=== PATIENT | female | born 1990 | race Caucasian/White ===

== ENCOUNTER 2025-03-31 22:57 | Emergency (ER) | payer OTHER, SELFPAY ==
[2025-03-31 23:07] VITALS: BP 107/86; PULSE 163; RESP 24; TEMP 36; O2SAT 98
[2025-03-31 23:39] VITALS: BMI 29.2
--- NOTE | 2025-03-31 23:44 | EDS_ITS ---
HPI History of Present Illness Chief Complaint: Anxiety Narrative Narrative: Patient is a 34-year-old female with past medical history anxiety, depression who presented to the emergency department with concern for panic attack. Per the patient around 8:00 this evening she started feeling increased sense of anxiety and notes that she took Klonopin at home. According to the patient family members at bedside they note that she has had panic attacks in the past but has been able to get through them. They note that they tried to help her through this this evening and seem to get much worse therefore they brought her here to the emergency department. 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 Patient denies suicidal homicidal ideation [facility] Medical History Depression Anxiety Allergy/AdvReac Type Severity Reaction Status Date / Time No Known Allergies Allergy Verified 03/31/25 23:07 Social History Smoking Status: Current some day smoker tobacco type: e-cigarettes ROS ROS ED ROS Narrative Constitutional: Denies any fevers, chills, headaches Eyes: Denies double vision Cardiovascular: Denies chest pain Respiratory: Shortness of breath Abdomen: Denies abdominal pain : Denies urinary symptoms Neurological: Denies numbness, wheeze, tingling Musculoskeletal: Denies back pain Skin: Denies rashes or lesions EXAM Physical Exam Narrative Exam Narrative: General: Patient is tearful during exam Head: Atraumatic, normocephalic Eyes: PERRL bilaterally, EOMI blood, no conjunctival injection noted Neck: Soft, supple, trachea midline Cardiovascular: Patient tachycardic with a regular rhythm Respiratory: Clear to auscultation bilaterally Extremities: +5/5 strength noted in the bilateral lower extremities Neurological: Patient follow commands as she was at [facility] years 2024 Skin: Warm, dry, tact no rashes or lesions noted Const Vital Signs: 03/31/25 23:07 Temperature 96.8 F L Temperature Source Temporal Pulse Rate 163 H Respiratory Rate 24 H Blood Pressure 107/86 H Blood Pressure Mean 93 Pulse Ox 98 Oxygen Delivery Method Room Air MDM MDM MDM Narrative Medical decision making narrative: Patient is a 34-year-old female who presents to the emergency department with chief complaint of panic attack. On the differential diagnose includes abdominal to anxiety, depression, panic attack. Patient states that she does follow with a psychiatrist but does not participate in counseling. Patient was given 5 mg IM Versed. Patient will be medically cleared and then be evaluated by social work/crisis for further evaluation with likely outpatient resources. see overnight provider's addendum for ultimate disposition details. Discharge Plan Triage Chief Complaint: Anxiety ED Provider: Horace Head Dx/Rx/DC Orders Clinical Impression: Anxiety, Panic attack Primary Care Provider: Aurora Brewer Referrals: Aurora Brewer MD [Primary Care Provider] - Activity Restrictions/Additional Instructions: Follow-up with your doctors in outpatient setting. Return with worsening symptoms or concerns. Use resources provided to you. Print Language: Khmer
[2025-03-31] MEDS: Midazolam 5 MG/ML Syringe IM (23:56)
[2025-04-01 00:38] LABS: Hematocrit 38.9 % (37-47); Hemoglobin 13.4 g/dL (12.0-15.0); Immature Granulocytes Count 0.030 X10^3/uL (0.0-0.0); Mean Corp Hgb Conc 34.4 g/dL (32-36); Mean Corpuscular Volume 83.3 fL (81-99); Mean Platelet Vol. 8.5 fl (6.2-12.0); NRBC Flagged by Analyzer 0 % (0-5); Platelet Count 623 K/mm3 (150-450); RBC Distribution Width CV 12.6 % (11.6-14.6); RBC Distribution Width SD 38.1 fl (35.1-43.9); Red Blood Count 4.67 M/mm3 (4.2-5.4); White Blood Count 11.2 K/mm3 (4.4-11.0)
[2025-04-01 00:54] LABS: Internal QC Validated? YES +Cl - CLEAR BKGD; Pregnancy, Serum, hCG Quali. NEGATIVE Negative; Record Kit Lot#, Serum Preg. 0000962302
[2025-04-01 00:57] LABS: Alcohol, Blood (Medical)-Serum < 10.1 mg/dL (<=10.0)
[2025-04-01 01:04] LABS: Free T3 3.3 pg/mL (2.18-3.98)
[2025-04-01 01:08] LABS: Anion Gap 18 (5-15); BUN 8 mg/dL (4-19); BUN/Creat Ratio 7.1 RATIO (10-20); Calcium,Total 10.2 mg/dL (7.6-11.0); Carbon Dioxide 19.9 mmol/L (21.0-32.0); Chloride 99 mmol/L (98-108); Estimated Creatinine Clearance 60.14 ml/min (50-250); Glucose 91 mg/dL (70-99); Potassium 3.8 mmol/L (3.3-5.1)
--- OUTSIDE RECORDS SUMMARY | 2025-04-01 01:09 | XMS RPT_ITS | CCD ---
Author Organization [facility] Care Team Providers Care Sightseeing Guide Name Role Phone Deborah Brown MD Primary Care Provider Deborah Brown MD Primary Care Provider Brandan CAN FILLING ROOM SWEEPER.DIGITAL LIBRARIAN, Clarissa Unavailable Masoud CAN FILLING ROOM SWEEPER.INSTRUCTOR TRAINER CANINE SERVICE, Viridiana Unavailable CLARISSA GIPSON Referring Unavailable DEBORAH BROWN Primary Care Unavailable DEBORAH BROWN Primary Care Unavailable ARISTEO BROWNA Primary Care Unavailable CLARISSA GIPSON Attending Unavailable DEBORAH BROWN Primary Care Unavailable Allergies Allergy Classification Reported Allergen(s) Allergy Type Date of Onset Reaction(s) Facility (7 sources) Cat; Translations: [CATS] Allergy to substance 8 Other: See Comments [facility] (7 sources) meloxicam; Translations: [MELOXICAM] Drug Allergy [address] [facility] Work Phone: (7 sources) metroNIDAZOLE; Translations: [METRONIDAZOLE HCL] Drug Allergy [address] [facility] (3 sources) seasonal [Other] Propensity to adverse reactions 4 Other: See Comments [facility] (1 source) OTHER; Translations: [OTHER] Propensity to adverse reactions (disorder) 4 [facility] [place] [facility] Medications Current Medications Medication Drug Class(es) Dates Sig (Normalized) Sig (Original) acetaminophen 325 mg / guaiFENesin 200 mg / phenylephrine hydrochloride 5 mg oral tablet (6 sources) alpha-1 Adrenergic Agonist Start: 02-23-2018 Phenylephrine-Angelito taminophen-GG (TYLENOL COLD HEAD CONGEST SEVR) 5-325-200 mg tab Indications: Viral URI Take 1 Dose by mouth as directed. 30 tablet 02/23/2018 Active Comment on above: Take 1 Dose by mouth as directed. [id number] 200 actuat albuterol 0.09 mg/actuat metered dose inhaler (6 sources) beta2-Adrenergic Agonist Start: 01-28-2019 take 2 puff(s) by inhalation every four hours as needed albuterol HFA (PROVENTIL HFA, VENTOLIN HFA) 90 mcg/actuation inhaler Indications: SOB (shortness of breath) , Wheezing Inhale 2 Puffs as instructed every 4 hours as needed. 1 Inhaler 2 01/28/2019 Active Comment on above: Inhale 2 Puffs as in structed every 4 hours as needed. 24 hr amphetamine aspartate 7.5 mg / amphetamine sulfate 7.5 mg / dextroamphetamine saccharate 7.5 mg / dextroamphetamine sulfate 7.5 mg extended release oral capsule (2 sources) Central Nervous System Stimulant Start: 07-03-2024 take 1 capsule by mouth once daily in the morning amphetamine-dextr oamphetamine XR (ADDERALL XR) 30 mg capsule Take 30 mg by mouth every morning. 07/03/2024 Active azelastine hydrochloride 0.137 mg/actuat metered dose nasal spray (6 sources) Histamine-1 Receptor Antagonist Start: 02-28-2018 take 2 spray(s) nasal route twice daily as needed azelastine (ASTELIN,ASTEPRO) 0.1% nasal spray Indications: Seasonal allergic rhinitis due to pollen , Allergic rhinitis due to dust mite , Allergic rhinitis due to cats Use 2 Sprays in each nostril twice daily as needed. 1 Bottle 11 02/28/2018 Active Comment on above: Use 2 Sprays in each nostril twice daily as needed. benztropine mesylate 1 mg oral tablet (2 sources) Anticholinergic, Antihistamine Start: 07-30-2024 benztropine (COGENTIN) 1 mg tablet Take 1 mg by mouth. 07/30/2024 Active brexpiprazole 2 mg oral tablet (2 sources) Atypical Antipsychotic Start: 07-29-2024 take 1 tablet by mouth once REXULTI 2 mg tablet Take 1 tablet by mouth every afternoon. 07/29/2024 Active calcipotriene 0.05 mg/ml topical solution (6 sources) Vitamin D Analog Start: 06-04-2019 Calcipotriene 0.005 % soln Apply daily for 2 weeks then apply on weekdays 1 Bottle 2 06/04/2019 Active Comment on above: Apply daily for 2 we eks then apply on week ciprofloxacin 3 mg/ml ophthalmic solution (1 source) Quinolone Antimicrobial Start: 01-22-2022 End: 01-29-2022 take 1-2 drop(s) into the eye(s) every two hours, then take 1-2 drop(s) into the eye(s) every four hours ciprofloxacin HCl (CILOXAN) 0.3 % ophthalmic solution Use 1-2 drops inside right lower eyelid(s) every 2 hours while awake for 2 days, then 1-2 drops every 4 hours for next 5 days. 2.5 mL 0 01/22/2022 01/29/2022 Active Comment on above: Use 1-2 drops inside right lower eyelid(s) every 2 hours while awake for 2 days, then 1-2 drops every 4 hours for next 5 days. clobetasol propionate 0.5 mg/ml medicated shampoo (6 sources) Corticosteroid Start: 02-15-2022 Clobetasol Propionate (CLOBEX) 0.05 % sham Indications: Other seborrheic dermatitis , Pruritus of scalp Lather up entire scalp surface that has been itching and scaling with a 15 minute soak-in as tolerated and then thoroughly rinse off completely, on alternate days (qoday) for a 2 to 4 week period (or less if alot better) and then can slowly taper as able to once per week or less often as able. 118 mL 02/15/2022 Active Start: 04-25-2019 Clobetasol Pro pionate (CLOBEX) 0.05 % sham Indications: Other seborrheic dermatitis , Pruritus of scalp Lather up entire scalp surface that has been itching and scaling with a 15 minute soak-in as tolerated and then thoroughly rinse off completely, on alternate days (qoday) for a 2 to 4 week period (or less if alot better) and then can slowly taper as able to once per week or less often as able. 1 Bottle 0 04/25/2019 Active Comment on above: Lather up entire sca lp surface that has been itching and scaling with a 15 minute soak-in as tolerated and then thoroughly rinse off completely, on alternate days (qoday) for a 2 to 4 week period (or less if alot better) and then can slowly taper as able to once per week or less often as able. Lather up entire sca lp surface that has been itching and scaling with a 15 minute soak-in as tolerated and then thoroughly rinse off completely, on alternate days (qoday) for a 2 to 4 week period (or less if alot better) and then can slowly taper as able to once per week or less often as able. clonazePAM 0.5 mg oral tablet (6 sources) Benzodiazepine Start: 017 clonazePAM (KLONOPIN) 0.5 mg tablet Indications: Anxiety , Psychophysiological insomnia Take 1 tablet by mouth at bedtime as needed. May take half to whole pill as needed for panic attacks 30 tablet 1 05/14/2017 Active Comment on above: Take 1 tablet by nina th at bedtime as needed. May take half to whole pill as needed for panic attacks dextroamphetamine/ amphetamine (ADDERALL ORAL) (6 sources) take 25 mg by mouth once daily dextroamphetamine/amphetam ine (ADDERALL ORAL) Take 25 mg by mouth once daily. Active take 25 mg by mouth once daily d extroamphetamine/amphetamine (ADDERALL ORAL) Take 25 mg by mouth once daily. 0 Active Comment on above: Take 25 mg by mouth once daily. doxycycline hyclate 100 mg oral tablet (1 source) Tetracycline-class Drug Start: 3 End: 3 take 1 tablet by mouth twice daily doxycycline (VIBRA-TABS) 100 mg tablet Take 1 tablet by mouth two times a day for 7 days. 14 tablet 0 06/10/2023 06/17/2023 Active Comment on above: Take 1 tablet by nina th two times a day for 7 days. DULoxetine 30 mg delayed release oral capsule (6 sources) Serotonin and Norepinephrine Reuptake Inhibitor Start: 4 DULoxetine (CYMBALTA) 30 mg capsule 09/30/2023 Active Start: 09-30-2023 DULoxetine (CY MBALTA) 60 mg capsule 09/30/2023 Active fluticasone propionate 0.05 mg/actuat metered dose nasal spray (6 sources) Corticosteroid Start: 02-28-2018 take 2 spray(s) nasal route once daily fluticasone (FLONASE) 50 mcg/actuation nasal spray Use 2 Sprays in each nostril once daily. 1 Bottle 11 02/28/2018 Active Comment on above: Use 2 Sprays in each nostril once daily. ketoconazole 20 mg/ml topical cream (6 sources) Azole Antifungal Start: 04-25-2019 ketoconazole (NIZORAL) 2 % cream Apply 1 application to affected area once daily. Use for 1 week after rash resolves 30 g 04/25/2019 Active Comment on above: Apply 1 application to affected area once daily. Use for 1 week after rash resolves ketotifen 0.25 mg/ml ophthalmic solution (6 sources) Histamine-1 Receptor Inhibitor Start: 02-28-2018 ketotifen fumarate (ZADITOR) 0.025 % (0.035 %) ophthalmic solution Indications: Seasonal allergic rhinitis due to pollen , Allergic [facility] Work Phone: 08-20-1991 measles, mumps and rubella virus vaccine [facility] CAN FILLING ROOM SWEEPER.[facility] Work Phone: [facility] Work Phone: 08-04-1991 tuberculin skin test ; purified protein derivative solution, intradermal Clarissa Gipson CAN FILLING ROOM SWEEPER.DIGITAL LIBRARIAN Work Phone: [facility] 06-26-1990 diphtheria, tetanus toxoids and acellular pertussis vaccine [facility] CAN FILLING ROOM SWEEPER.INSTRUCTOR TRAINER CANINE SERVICE Work Phone: [facility] Work Phone: 06-05-1990 diphtheria, tetanus toxoids and acellular pertussis vaccine [facility] CAN FILLING ROOM SWEEPER.INSTRUCTOR TRAINER CANINE SERVICE Work Phone: [facility] Work Phone: 06-05-1990 poliovirus vaccine, inactivated [facility] CAN FILLING ROOM SWEEPER.[facility] Work Phone: [facility] Work Phone: 03-20-1990 diphtheria, tetanus toxoids and acellular pertussis vaccine [facility] CAN FILLING ROOM SWEEPER.INSTRUCTOR TRAINER CANINE SERVICE Work Phone: [facility] Work Phone: 03-20-1990 poliovirus vaccine, inactivated [facility] [employer] CAN FILLING ROOM SWEEPER.[facility] Work Phone: [facility] Work Phone: Payers Date Payer Category Payer Unknown MMO MMO [employer] [id number] 2024-Present [phone] [address] [place] [address] Indemnity [id number] 2024 Unknown [id number] 2022 Medicaid [id number] 2021 Medicaid [employer] [id number] 2021-Present [phone] [address] [place] [address] Medicaid [id number] 2021 Medicaid [id number] Social History Date Type Detail Facility Start: 10-27-2016 End: 06-10-2023 Tobacco smoking status NHIS Ex-smoker [facility] End: 06-26-2016 History of tobacco use Current smoker [facility] End: 06-26-2016 History of tobacco use Cigarette Smoker [facility] Start: 10-27-2016 End: 06-10-2023 Tobacco use and exposure Smokeless tobacco non-user [facility] Start: 01-22-2022 End: 10-10-2023 Alcohol intake Current drinker of alcohol (finding) [facility] Start: 03-31-2011 History SDOH Alcohol Comment Occasionally [facility] Start: 05-03-[address] [facility] Start: 1990 Sex Assigned At Not on file C [facility] Start: 01-12-2022 End: 01-22-2022 Exposure to SARS-CoV-2 (event) Not sure [facility] Work Phone: Start: 06-10-2023 End: 09-01-2024 History of Social function [facility] Start: 06-10-2023 End: 09-01-[address] [facility] Adult Depression Screening Assessment [address] [facility] Start: 06-10-2023 Tobacco Comment mother smokes [facility] Has the Third Age, Feedback, oil, or water company threatened to shut off services in your home in past 12Mo No [facility] Are you now , , , , never or living with a partner? Never [facility] How often to you hav e a drink containing alcohol? Monthly or less [facility] How many standard drinks containing alcohol do you have on a typical day? [address] [facility] How often do you hav e 6 or more drinks on 1 occasion? Less than monthly [facility] How hard is it for y ou to pay for the very basics like food, housing, medical care, and heating Not very hard [facility] Do you feel stress - tense, restless, nervous, or anxious, or unable to sleep at night because your mind is troubled all the time - these days [OSQ] Only a little [facility] (I/We) worried rafa (my/our) food would run out before (I/we) got money to buy more. Never true [facility] Clinical Notes 01-22-2022 to 09-08-2024 Telephone Encounter - Clarissa Gipson APRN.DIGITAL LIBRARIAN - 09/08/2024 12:44 PM ESTTelephone Encounter - Clarissa Gipson APRN.DIGITAL LIBRARIAN - 09/08/2024 12:44 PM Clarissa Diamond APRN.DIGITAL LIBRARIAN - 09/02/2024 12:59 PM EST Note Date & Type Note Facility 09-08-2024 Telephone encounter Note Consistent with recent infection, otherwise within normal limits. Repeat at next lab draw. Latest Ref Rng 09/02/2024 WBC 3.70 - 11.00 k/uL 11.82 (H) RBC 3.90 - 5.20 m/uL 4.94 Hemoglobin 11.5 - 15.5 g/dL 14.9 Hematocrit 36.0 - 46.0 % 45.5 MCV 80.0 - 100.0 fL 92.1 MCH 26.0 - 34.0 pg 30.2 MCHC 30.5 - 36.0 g/dL 32.7 RDW-CV 11.5 - 15.0 % 13.2 Platelet Count 150 - 400 k/uL 662 (H) MPV 9.0 - 12.7 fL 8.7 (L) Neut% % 73.3 Abs Neut (ANC) 1.45 - 7.50 k/uL 8.67 (H) Lymph% % 17.8 Abs Lymph 1.00 - 4.00 k/uL 2.10 [place]% % 6.8 Abs [place] <0.87 k/uL 0.80 Eosin% % 1.0 Abs Eosin <0.46 k/uL 0.12 Baso% % 0.8 Abs Baso <0.11 k/uL 0.09 Immature Gran % % 0.3 IMMATURE GRANS (ABS) <0.10 k/uL 0.04 NRBC /100 WBC 0.0 Absolute nRBC <0.01 k/uL <0.01 DTYPE Auto Protein, Total 6.3 - 8.0 g/dL 7.8 Albumin 3.9 - 4.9 g/dL 4.5 Calcium 8.5 - 10.2 mg/dL 9.4 Bilirubin, Total 0.2 - 1.3 mg/dL 0.3 Alkaline Phosphatase 34 - 123 U/L 83 AST 13 - 35 U/L 22 ALT 7 - 38 U/L 14 Glucose 74 - 99 mg/dL 92 BUN 7 - 21 mg/dL 8 Creatinine 0.58 - 0.96 mg/dL 0.79 Sodium 136 - 144 mmol/L 137 Potassium 3.7 - 5.1 mmol/L 4.3 Chloride 98 - 107 mmol/L 99 CO2 22 - 30 mmol/L 23 Anion Gap 8 - 15 mmol/L 15 eGFR >=60 mL/min/1.73m 101 TSH 0.270 - 4.200 mIU/L 1.620 Lyme Abs, IgG/IgM Negative Negative Vitamin B12 232 - 1,245 pg/mL 981 Hep C Antibody IA Negative Negative Legend: (H) High (L) Low [facility] Work Phone: 09-08-2024 Miscellaneous Notes Consistent with recent infection, otherwise within normal limits. Repeat at next lab draw. Latest Ref Rng 09/02/2024 WBC 3.70 - 11.00 k/uL 11.82 (H) RBC 3.90 - 5.20 m/uL 4.94 Hemoglobin 11.5 - 15.5 g/dL 14.9 Hematocrit 36.0 - 46.0 % 45.5 MCV 80.0 - 100.0 fL 92.1 MCH 26.0 - 34.0 pg 30.2 MCHC 30.5 - 36.0 g/dL 32.7 RDW-CV 11.5 - 15.0 % 13.2 Platelet Count 150 - 400 k/uL 662 (H) MPV 9.0 - 12.7 fL 8.7 (L) Neut% % 73.3 Abs Neut (ANC) 1.45 - 7.50 k/uL 8.67 (H) Lymph% % 17.8 Abs Lymph 1.00 - 4.00 k/uL 2.10 [place]% % 6.8 Abs [place] <0.87 k/uL 0.80 Eosin% % 1.0 Abs Eosin <0.46 k/uL 0.12 Baso% % 0.8 Abs Baso <0.11 k/uL 0.09 Immature Gran % % 0.3 IMMATURE GRANS (ABS) <0.10 k/uL 0.04 NRBC /100 WBC 0.0 Absolute nRBC <0.01 k/uL <0.01 DTYPE Auto Protein, Total 6.3 - 8.0 g/dL 7.8 Albumin 3.9 - 4.9 g/dL 4.5 Calcium 8.5 - 10.2 mg/dL 9.4 Bilirubin, Total 0.2 - 1.3 mg/dL 0.3 Alkaline Phosphatase 34 - 123 U/L 83 AST 13 - 35 U/L 22 ALT 7 - 38 U/L 14 Glucose 74 - 99 mg/dL 92 BUN 7 - 21 mg/dL 8 Creatinine 0.58 - 0.96 mg/dL 0.79 Sodium 136 - 144 mmol/L 137 Potassium 3.7 - 5.1 mmol/L 4.3 Chloride 98 - 107 mmol/L 99 CO2 22 - 30 mmol/L 23 Anion Gap 8 - 15 mmol/L 15 eGFR >=60 mL/min/1.73m 101 TSH 0.270 - 4.200 mIU/L 1.620 Lyme Abs, IgG/IgM Negative Negative Vitamin B12 232 - 1,245 pg/mL 981 Hep C Antibody IA Negative Negative Legend: (H) High (L) Low documented in this encounter [facility] 09-02-2024 Note HNO ID: [id number] Author: CLARISSA GIPSON APRN.DIGITAL LIBRARIAN Service: ? Author Type: Nurse Specialist Type: Progress Notes Filed: 09/08/2024 12:44 Note Text: .AMBULATORY TELEPHONE VISIT Niecy Kyle has consented to this telephone encounter. Persons Present: patient Chief Complaint/Reason: fatigue HPI: Reports fstigue for two years, tired during the day. States she can sleep 12 hours during the day.Feels like progressively worse. States no prior testing. Thought it was depression, has tried depression medications and now with depression in better control but still feeling fatigued. Does not feel rested when she sleeps. Notes does have more fatigue at night. She reports her dog did have Lyme disease about a year ago, she has not had a tick bite, no EM or rash . STOP BANG Questionnaire 1. Snoring Do you snore loudly (louder than talking or loud enough to be heard through closed doors)? YES 2. Tired Do you often feel tired, fatigued, or sleepy during daytime? YES 3. Observed Has anyone observed you stop breathing during your sleep? NO 4. Blood Pressure Do you have or are you being treated for high blood pressure? NO 5. BMI BMI more than 35 kg/m2? YES 6. Age Age over 50 yr old? NO 7. Neck circumference Neck circumference greater than 40 cm? 8. Gender Gender male? NO * Neck circumference is measured by staff High risk of FLORENCIO: answering yes to three or more items Low risk of FLORENCIO: answering yes to less than three items Data Reviewed: chart Assessment: (R53.83) Other fatigue (primary encounter diagnosis) ASSESSMENT/PLAN: 1. Other fatigue - ICD9: 780.79, ICD10: R53.83 Will begin workup with basic labs. In office visit recommended, it has been greater than 1 year since last seen. Consider FLORENCIO if labs unrevealing for cause. - COMPLETE BLOOD COUNT AND DIFFERENTIAL - COMPREHENSIVE METABOLIC PANEL - THYROID STIMULATING HORMONE - LYME AB LATE >30 DAYS SYMPTOMS - VITAMIN B12 Total Time Spent: 15 minutes Clarissa Gipson APRN.CNS [facility] 09-02-2024 History of Presen t illness Narrative .AMBULATORY TELEPHONE VISIT Niecy Kyle has consented to this telephone encounter. Persons Present: patient Chief Complaint/Reason: fatigue HPI: Reports fstigue for two years, tired during the day. States she can sleep 12 hours during the day.Feels like progressively worse. States no prior testing. Thought it was depression, has tried depression medications and now with depression in better control but still feeling fatigued. Does not feel rested when she sleeps. Notes does have more fatigue at night. She reports her dog did have Lyme disease about a year ago, she has not had a tick bite, no EM /will begin workup with basic labs rashes reported. STOP BANG Questionnaire 1. Snoring Do you snore loudly (louder than talking or loud enough to be heard through closed doors)? YES 2. Tired Do you often feel tired, fatigued, or sleepy during daytime? YES 3. Observed Has anyone observed you stop breathing during your sleep? NO 4. Blood Pressure Do you have or are you being treated for high blood pressure? NO 5. BMI BMI more than 35 kg/m2? YES 6. Age Age over 50 yr old? NO 7. Neck circumference Neck circumference greater than 40 cm? 8. Gender Gender male? NO * Neck circumference is measured by staff High risk of FLORENCIO: answering yes to three or more items Low risk of FLORENCIO: answering yes to less than three items Data Reviewed: chart Assessment: (R53.83) Other fatigue (primary encounter diagnosis) ASSESSMENT/PLAN: 1. Other fatigue - ICD9: 780.79, ICD10: R53.83 Will begin workup with basic labs. In office visit recommended, it has been greater than 1 year since last seen. Consider FLORENCIO if labs unrevealing for cause. - COMPLETE BLOOD COUNT AND DIFFERENTIAL - COMPREHENSIVE METABOLIC PANEL - THYROID STIMULATING HORMONE - LYME AB LATE >30 DAYS SYMPTOMS - VITAMIN B12 Total Time Spent: 15 minutes Clarissa Gipson APRN.DIGITAL LIBRARIAN documented in this encounter [facility] 10-10-2023 Note HNO ID: [id number] Author: DARREL AGUILLON APRN.INSTRUCTOR TRAINER CANINE SERVICE Service: ? Author Type: Nurse Practitioner Type: Progress Notes Filed: 10/10/2023 13:13 Note Text: Subjective HPI HPI Niecy Kyle is a 32 year old female who presents today for CC of left eye redness, drainage. This started today. Has tried nothing for relief. Symptoms are worsened by nothing. Risk factors sick exposures at school/work. Wears contacts. .Patient presents with: Eye Problem: left eye redness and drainage x this am PAST MEDICAL HISTORY Diagnosis Date Anxiety Depression DIFF CONNECT TIS DIS NOS 07/28/2003 Dysplasia of cervix, low grade (LEATHA 1) 04/23/2012 Lupus (HCC) ?diagnosis (not certain met criteria) PMH - PAST MEDICAL HISTORY OF 05/04 menarche PMH - PAST MEDICAL HISTORY OF 12/16/96 color vision normal varicella varicella at age 1 years PAST SURGICAL HISTORY Procedure Laterality Date MIRENA IUD 05/06/2021 Insertion ALLERGIES Cats, Flagyl [Metronidazole Hcl], Meloxicam, and Seasonal [Other] MEDICATIONS DULoxetine (CYMBALTA) 30 mg capsule DULoxetine (CYMBALTA) 60 mg capsule valACYclovir (VALTREX) 500 mg tablet TAKE 1 TABLET BY MOUTH ONCE DAILY. DURING OUTBREAKS MAY TAKE 1 TABLET TWICE A DAY Clobetasol Propionate (CLOBEX) 0.05 % sham Lather up entire scalp surface that has been itching and scaling with a 15 minute soak-in as tolerated and then thoroughly rinse off completely, on alternate days (qoday) for a 2 to 4 week period (or less if alot better) and then can slowly taper as able to once per week or less often as able. mometasone (ELOCON) 0.1 % cream Apply selectively to affected areas of rash or dry scaling and/or itching Seborrheic Dermatitis or Psoriasis of scalp twice per day (bid) until clear and then can stop or taper off as able. AVOID face, eyes, and eyelids, and deep fold areas. hydrOXYzine HCl (ATARAX) 25 mg tablet Take 1 tablet by mouth at bedtime as needed. levonorgestrel (MIRENA) 20 mcg/24 hours (6 yrs) 52 mg IUD 1 Each by INTRAUTERINE route as directed. Calcipotriene 0.005 % soln Apply daily for 2 weeks then apply on weekdays Mometasone (ELOCON) 0.1 % lotion Apply selectively to affected areas of rash or dry scaling and/or itching Seborrheic Dermatitis or Psoriasis of scalp twice per day (bid) until clear and then can stop or taper off as able. AVOID face, eyes, and eyelids, and deep fold areas. naproxen (NAPROSYN) 500 mg tablet Take 1 tablet by mouth twice daily as needed (for pain/inflammation). Take with food. ketoconazole (NIZORAL) 2 % cream Apply 1 application to affected area once daily. Use for 1 week after rash resolves montelukast (SINGULAIR) 10 mg tablet Take 1 tablet by mouth daily at bedtime. albuterol HFA (PROVENTIL HFA, VENTOLIN HFA) 90 mcg/actuation inhaler Inhale 2 Puffs as instructed every 4 hours as needed. dextroamphetamine/amphetamine (ADDERALL ORAL) Take 25 mg by mouth once daily. ketotifen fumarate (ZADITOR) 0.025 % (0.035 %) ophthalmic solution One drop to each eye 2 to 3 times a day as needed. azelastine (ASTELIN,ASTEPRO) 0.1% nasal spray Use 2 Sprays in each nostril twice daily as needed. (Patient taking differently: Use 2 Sprays in each nostril two times a day as needed. Patient uses once daily at night.) fluticasone (FLONASE) 50 mcg/actuation nasal spray Use 2 Sprays in each nostril once daily. [id number]-MB (TYLENOL COLD HEAD CONGEST SEVR) 5-325-200 mg tab Take 1 Dose by mouth as directed. clonazePAM (KLONOPIN) 0.5 mg tablet Take 1 tablet by mouth at bedtime as needed. May take half to whole pill as needed for panic attacks escitalopram oxalate (LEXAPRO) 20 mg tablet FAMILY HISTORY Problem Relation Age of Onset Hypertension Mother Hypertension Father Diabetes Maternal Grandmother Hypertension Maternal Grandmother Emphysema Maternal Grandfather - congestive heart failure Coronary Artery Disease Paternal Grandfather Heart Paternal Grandfather [place] Social History Tobacco Use Smoking status: Former Types: Cigarettes Quit date: 06/26/2016 Years since quittin.2 Smokeless tobacco: Never Tobacco comments: mother smokes Vaping Use Vaping Use: Never used Substance Use Topics Alcohol use: Yes Comment: Occasionally Drug use: No Review of Systems Constitutional: Negative for chills and fever. HENT: Negative for ear discharge, ear pain and sore throat. Eyes: Positive for discharge and redness. Negative for blurred vision, double vision, photophobia and pain. Neurological: Negative for headaches. Objective Blood pressure 128/78, pulse (!) 124, temperature 36.9 ?C (98.4 ?F), resp. rate 16, weight 78.4 kg (172 lb 12.8 oz), last menstrual period 11/15/2014, SpO2 99%. Physical Exam Constitutional: General: She is not in acute distress. Appearance: She is not toxic-appearing. HENT: Right Ear: Hearing, tympanic membrane and external ear normal. Left Ear: Hearing (more content not included)... [facility] [facility] History of Presen t illness Narrative Subjective HPI HPI Niecy Kyle is a 32 year old female who presents today for CC of left eye redness, drainage. This started today. Has tried nothing for relief. Symptoms are worsened by nothing. Risk factors sick exposures at school/work. Wears contacts. .Patient presents with: Eye Problem: left eye redness and drainage x this am PAST MEDICAL HISTORY Diagnosis Date Anxiety Depression DIFF CONNECT TIS DIS NOS 07/28/2003 Dysplasia of cervix, low grade (LEATHA 1) 04/23/2012 Lupus (HCC) ?diagnosis (not certain met criteria) PMH - PAST MEDICAL HISTORY OF 05/04 menarche PMH - PAST MEDICAL HISTORY OF 12/16/96 color vision normal varicella varicella at age 1 years PAST SURGICAL HISTORY Procedure Laterality Date MIRENA IUD 05/06/2021 Insertion ALLERGIES Cats, Flagyl [Metronidazole Hcl], Meloxicam, and Seasonal [Other] MEDICATIONS DULoxetine (CYMBALTA) 30 mg capsule DULoxetine (CYMBALTA) 60 mg capsule valACYclovir (VALTREX) 500 mg tablet TAKE 1 TABLET BY MOUTH ONCE DAILY. DURING OUTBREAKS MAY TAKE 1 TABLET TWICE A DAY Clobetasol Propionate (CLOBEX) 0.05 % sham Lather up entire scalp surface that has been itching and scaling with a 15 minute soak-in as tolerated and then thoroughly rinse off completely, on alternate days (qoday) for a 2 to 4 week period (or less if alot better) and then can slowly taper as able to once per week or less often as able. mometasone (ELOCON) 0.1 % cream Apply selectively to affected areas of rash or dry scaling and/or itching Seborrheic Dermatitis or Psoriasis of scalp twice per day (bid) until clear and then can stop or taper off as able. AVOID face, eyes, and eyelids, and deep fold areas. hydrOXYzine HCl (ATARAX) 25 mg tablet Take 1 tablet by mouth at bedtime as needed. levonorgestrel (MIRENA) 20 mcg/24 hours (6 yrs) 52 mg IUD 1 Each by INTRAUTERINE route as directed. Calcipotriene 0.005 % soln Apply daily for 2 weeks then apply on weekdays Mometasone (ELOCON) 0.1 % lotion Apply selectively to affected areas of rash or dry scaling and/or itching Seborrheic Dermatitis or Psoriasis of scalp twice per day (bid) until clear and then can stop or taper off as able. AVOID face, eyes, and eyelids, and deep fold areas. naproxen (NAPROSYN) 500 mg tablet Take 1 tablet by mouth twice daily as needed (for pain/inflammation). Take with food. ketoconazole (NIZORAL) 2 % cream Apply 1 application to affected area once daily. Use for 1 week after rash resolves montelukast (SINGULAIR) 10 mg tablet Take 1 tablet by mouth daily at bedtime. albuterol HFA (PROVENTIL HFA, VENTOLIN HFA) 90 mcg/actuation inhaler Inhale 2 Puffs as instructed every 4 hours as needed. dextroamphetamine/amphetamine (ADDERALL ORAL) Take 25 mg by mouth once daily. ketotifen fumarate (ZADITOR) 0.025 % (0.035 %) ophthalmic solution One drop to each eye 2 to 3 times a day as needed. azelastine (ASTELIN,ASTEPRO) 0.1% nasal spray Use 2 Sprays in each nostril twice daily as needed. (Patient taking differently: Use 2 Sprays in each nostril two times a day as needed. Patient uses once daily at night.) fluticasone (FLONASE) 50 mcg/actuation nasal spray Use 2 Sprays in each nostril once daily. Mddumdmqsaxdq-Rfacfevnvbvyd-WN (TYLENOL COLD HEAD CONGEST SEVR) 5-325-200 mg tab Take 1 Dose by mouth as directed. clonazePAM (KLONOPIN) 0.5 mg tablet Take 1 tablet by mouth at bedtime as needed. May take half to whole pill as needed for panic attacks escitalopram oxalate (LEXAPRO) 20 mg tablet FAMILY HISTORY Problem Relation Age of Onset Hypertension Mother Hypertension Father Diabetes Maternal Grandmother Hypertension Maternal Grandmother Emphysema Maternal Grandfather - congestive heart failure Coronary Artery Disease Paternal Grandfather Heart Paternal Grandfather [place] Social History Tobacco Use Smoking status: Former Types: Cigarettes Quit date: 06/26/2016 Years since quittin.2 Smokeless tobacco: Never Tobacco comments: mother smokes Vaping Use Vaping Use: Never used Substance Use Topics Alcohol use: Yes Comment: Occasionally Drug use: No Review of Systems Constitutional: Negative for chills and fever. HENT: Negative for ear discharge, ear pain and sore throat. Eyes: Positive for discharge and redness. Negative for blurred vision, double vision, photophobia and pain. Neurological: Negative for headaches. Objective Blood pressure 128/78, pulse (!) 124, temperature 36.9 C (98.4 F), resp. rate 16, weight 78.4 kg (172 lb 12.8 oz), last menstrual period 11/15/2014, SpO2 99%. Physical Exam Constitutional: General: She is not in acute distress. Appearance: She is not toxic-appearing. HENT: Right Ear: Hearing, tympanic membrane and external ear normal. Left Ear: Hearing, tympanic membrane, ear canal and external ear normal. Nose: No mucosal edema. Mouth/Throat: Pharynx: Uvula midline. Eyes: General: Right eye: No discharge. Left eye: Discharge present. Conjunctiva/sclera: Right eye: Right conjunctiva is not injected. Left eye: Left conjunctiva is injected. Lymphadenopathy: Cervical: Right cervical: No superficial cervical adenopathy. Left cervical: No superficial cervical adenopathy. Comments: No cervical lymphadenopathy bilaterally Neurological: Mental Status: She is oriented to person, place, and time. ASSESSMENT/PLAN: 1. Bacterial conjunctivitis - ICD9: 372.39, 041.9, ICD10: H10.9 Bacterial - see medication orders - course and contagiousness issues discussed, including hand washing. - Instructed to call if high fever, development of periorbital redness or swelling, eye pain, visual changes, concerns or if symptoms persist. - POLYMYXIN B SULFATE 10,000 UNIT-TRIMETHOPRIM 1 MG/ML EYE DROPS Darrel Aguillon APRN.INSTRUCTOR TRAINER CANINE SERVICE documented in this encounter [facility] 10-02-2023 Note HNO ID: [id number] Author: JIM BURKS PA-C Service: ? Author Type: Physician Iron Cutter Type: Progress Notes Filed: 10/02/2023 15:37 Note Text: This note was created using [employer]. Subjective Niecy Kyle is a 32 year old female. HPI Presents with a chief complaint of fever, body aches, sore throat, congestion and cough over the past 2 days. She was exposed to influenza A and B at work. She works at a school. No vomiting or diarrhea. No abdominal pain. She does have a history of exercise-induced asthma. She states her fevers have been in the high 99's. No chest pain or shortness of breath. Review of Systems Constitutional: Positive for fatigue and fever. HENT: Positive for congestion, rhinorrhea and sore throat. Negative for ear pain. Respiratory: Positive for cough. Negative for shortness of breath. Cardiovascular: Negative. Gastrointestinal: Negative. Genitourinary: Negative. Musculoskeletal: Positive for myalgias. Neurological: Positive for headaches. All other systems reviewed and are negative. PAST MEDICAL HISTORY Diagnosis Date Anxiety Depression DIFF CONNECT TIS DIS NOS 07/28/2003 Dysplasia of cervix, low grade (LEATHA 1) 04/23/2012 Lupus (HCC) ?diagnosis (not certain met criteria) PMH - PAST MEDICAL HISTORY OF 05/04 menarche PMH - PAST MEDICAL HISTORY OF 12/16/96 color vision normal varicella varicella at age 1 years Current Outpatient Medications Medication Sig Dispense Refill Clobetasol Propionate (CLOBEX) 0.05 % sham Lather up entire scalp surface that has been itching and scaling with a 15 minute soak-in as tolerated and then thoroughly rinse off completely, on alternate days (qoday) for a 2 to 4 week period (or less if alot better) and then can slowly taper as able to once per week or less often as able. 118 mL 0 mometasone (ELOCON) 0.1 % cream Apply selectively to affected areas of rash or dry scaling and/or itching Seborrheic Dermatitis or Psoriasis of scalp twice per day (bid) until clear and then can stop or taper off as able. AVOID face, eyes, and eyelids, and deep fold areas. 15 g 1 hydrOXYzine HCl (ATARAX) 25 mg tablet Take 1 tablet by mouth at bedtime as needed. 30 tablet 2 levonorgestrel (MIRENA) 20 mcg/24 hours (6 yrs) 52 mg IUD 1 Each by INTRAUTERINE route as directed. 1 Each 0 Calcipotriene 0.005 % soln Apply daily for 2 weeks then apply on weekdays 1 Bottle 2 Mometasone (ELOCON) 0.1 % lotion Apply selectively to affected areas of rash or dry scaling and/or itching Seborrheic Dermatitis or Psoriasis of scalp twice per day (bid) until clear and then can stop or taper off as able. AVOID face, eyes, and eyelids, and deep fold areas. 30 mL 0 ketoconazole (NIZORAL) 2 % cream Apply 1 application to affected area once daily. Use for 1 week after rash resolves 30 g 0 albuterol HFA (PROVENTIL HFA, VENTOLIN HFA) 90 mcg/actuation inhaler Inhale 2 Puffs as instructed every 4 hours as needed. 1 Inhaler 2 dextroamphetamine/amphetamine (ADDERALL ORAL) Take 25 mg by mouth once daily. ketotifen fumarate (ZADITOR) 0.025 % (0.035 %) ophthalmic solution One drop to each eye 2 to 3 times a day as needed. 1 Bottle 11 azelastine (ASTELIN,ASTEPRO) 0.1% nasal spray Use 2 Sprays in each nostril twice daily as needed. (Patient taking differently: Use 2 Sprays in each nostril two times a day as needed. Patient uses once daily at night.) 1 Bottle 11 fluticasone (FLONASE) 50 mcg/actuation nasal spray Use 2 Sprays in each nostril once daily. 1 Bottle 11 clonazePAM (KLONOPIN) 0.5 mg tablet Take 1 tablet by mouth at bedtime as needed. May take half to whole pill as needed for panic attacks 30 tablet 1 DULoxetine (CYMBALTA) 30 mg capsule DULoxetine (CYMBALTA) 60 mg capsule valACYclovir (VALTREX) 500 mg tablet TAKE 1 TABLET BY MOUTH ONCE DAILY. DURING OUTBREAKS MAY TAKE 1 TABLET TWICE A DAY (Patient not taking: Reported on 10/02/2023) 30 tablet 1 escitalopram oxalate (LEXAPRO) 20 mg tablet naproxen (NAPROSYN) 500 mg tablet Take 1 tablet by mouth twice daily as needed (for pain/inflammation). Take with food. (Patient not taking: Reported on 10/02/2023) 60 tablet 1 montelukast (SINGULAIR) 10 mg tablet Take 1 tablet by mouth daily at bedtime. (Patient not taking: Reported on 05/06/2021 ) 30 tablet 2 Cmkhqmzwarwqq-Fldjkliokcjus-QA (TYLENOL COLD HEAD CONGEST SEVR) 5-325-200 mg tab Take 1 Dose by mouth as directed. (Patient not taking: Reported on 10/02/2023) 30 tablet 0 No current facility-administered medications for this visit. PAST SURGICAL HISTORY Procedure Laterality Date MIRENA IUD 05/06/2021 Insertion FAMILY HISTORY Problem Relation Age of Onset Hypertension Mother Hypertension Father Diabetes Maternal Grandmother Hypertension Maternal Grandmother Emphysema Maternal Grandfather - congestive heart failure Coronary Artery Disease Paternal Grandfather Heart Paternal Grandfather [place] Social History Tobacco (more content not included)... [facility] 06-10-2023 History of Presen t illness Narrative Subjective HPI Nontoxic-appearing female presents urgent care chief complaint sinus pressure and cough. Feels like cough is from postnasal drip. Most prominent symptom today is sinus pressure. Has used OTC medications but not today. History of sinus factions this feels similar. Denies any fever body aches chills productive cough chest pain shortness of breath pleuritic pain hemoptysis nausea vomiting abdominal pain change in bowel or bladder habits. Past medical history prescription medication use and allergies reviewed. Denies chance of . Is not breast-feeding. .Patient presents with: Sinus Problem: sinus pressure, drainage, cough x 3 weeks PAST MEDICAL HISTORY Diagnosis Date Anxiety Depression DIFF CONNECT TIS DIS NOS 07/28/2003 Dysplasia of cervix, low grade (LEATHA 1) 04/23/2012 Lupus (HCC) ?diagnosis (not certain met criteria) PMH - PAST MEDICAL HISTORY OF 05/04 menarche PMH - PAST MEDICAL HISTORY OF 12/16/96 color vision normal varicella varicella at age 1 years PAST SURGICAL HISTORY Procedure Laterality Date MIRENA IUD 05/06/2021 Insertion ALLERGIES Cats, Flagyl [Metronidazole Hcl], Meloxicam, and Seasonal [Other] MEDICATIONS valACYclovir (VALTREX) 500 mg tablet TAKE 1 TABLET BY MOUTH ONCE DAILY. DURING OUTBREAKS MAY TAKE 1 TABLET TWICE A DAY Clobetasol Propionate (CLOBEX) 0.05 % sham Lather up entire scalp surface that has been itching and scaling with a 15 minute soak-in as tolerated and then thoroughly rinse off completely, on alternate days (qoday) for a 2 to 4 week period (or less if alot better) and then can slowly taper as able to once per week or less often as able. mometasone (ELOCON) 0.1 % cream Apply selectively to affected areas of rash or dry scaling and/or itching Seborrheic Dermatitis or Psoriasis of scalp twice per day (bid) until clear and then can stop or taper off as able. AVOID face, eyes, and eyelids, and deep fold areas. hydrOXYzine HCl (ATARAX) 25 mg tablet Take 1 tablet by mouth at bedtime as needed. levonorgestrel (MIRENA) 20 mcg/24 hours (6 yrs) 52 mg IUD 1 Each by INTRAUTERINE route as directed. Calcipotriene 0.005 % soln Apply daily for 2 weeks then apply on weekdays Mometasone (ELOCON) 0.1 % lotion Apply selectively to affected areas of rash or dry scaling and/or itching Seborrheic Dermatitis or Psoriasis of scalp twice per day (bid) until clear and then can stop or taper off as able. AVOID face, eyes, and eyelids, and deep fold areas. naproxen (NAPROSYN) 500 mg tablet Take 1 tablet by mouth twice daily as needed (for pain/inflammation). Take with food. ketoconazole (NIZORAL) 2 % cream Apply 1 application to affected area once daily. Use for 1 week after rash resolves albuterol HFA (PROVENTIL HFA, VENTOLIN HFA) 90 mcg/actuation inhaler Inhale 2 Puffs as instructed every 4 hours as needed. dextroamphetamine/amphetamine (ADDERALL ORAL) Take 25 mg by mouth once daily. ketotifen fumarate (ZADITOR) 0.025 % (0.035 %) ophthalmic solution One drop to each eye 2 to 3 times a day as needed. azelastine (ASTELIN,ASTEPRO) 0.1% nasal spray Use 2 Sprays in each nostril twice daily as needed. (Patient taking differently: Use 2 Sprays in each nostril two times a day as needed. Patient uses once daily at night.) fluticasone (FLONASE) 50 mcg/actuation nasal spray Use 2 Sprays in each nostril once daily. Vbvomkcqbczjp-Etqrkjwxinagw-YO (TYLENOL COLD HEAD CONGEST SEVR) 5-325-200 mg tab Take 1 Dose by mouth as directed. clonazePAM (KLONOPIN) 0.5 mg tablet Take 1 tablet by mouth at bedtime as needed. May take half to whole pill as needed for panic attacks doxycycline (VIBRA-TABS) 100 mg tablet Take 1 tablet by mouth two times a day for 7 days. escitalopram oxalate (LEXAPRO) 20 mg tablet montelukast (SINGULAIR) 10 mg tablet Take 1 tablet by mouth daily at bedtime. (Patient not taking: Reported on 05/06/2021 ) FAMILY HISTORY Problem Relation Age of Onset Hypertension Mother Hypertension Father Diabetes Maternal Grandmother Hypertension Maternal Grandmother Emphysema Maternal Grandfather - congestive heart failure Coronary Artery Disease Paternal Grandfather Heart Paternal Grandfather [place] Social History Tobacco Use Smoking status: Former Types: Cigarettes Quit date: 06/26/2016 Years since quittin.9 Smokeless tobacco: Never Tobacco comments: mother smokes Vaping Use Vaping Use: Never used Substance Use Topics Alcohol use: Yes Comment: Occasionally Drug use: No BP 118/70 Pulse 85 Temp 36.9 C (98.4 F) Resp 18 Wt 76.1 kg (167 lb 12.8 oz) LMP 11/15/2014 SpO2 98% BMI 31.71 kg/m Review of Systems Constitutional: Negative for chills, fever and malaise/fatigue. HENT: Positive for congestion and sinus pain. Negative for ear discharge, ear pain and sore throat. Eyes: Negative for blurred vision, pain, discharge and redness. Respiratory: Positive for cough. Negative for hemoptysis, sputum production, shortness of breath, wheezing and stridor. Cardiovascular: Negative for chest pain. Gastrointestinal: Negative for abdominal pain, diarrhea, nausea and vomiting. Musculoskeletal: Negative for myalgias. Skin: Negative for itching and rash. Neurological: Negative for dizziness and headaches. Objective Physical Exam Constitutional: General: She is not in acute distress. Appearance: She is not diaphoretic. HENT: Head: Normocephalic. Jaw: No trismus, tenderness, swelling or pain on movement. Nose: Congestion present. Right Sinus: Maxillary sinus tenderness present. Left Sinus: Maxillary sinus tenderness present. Mouth/Throat: Mouth: Mucous membranes are moist. Pharynx: Oropharynx is clear. Uvula midline. No pharyngeal swelling, oropharyngeal exudate, posterior oropharyngeal erythema or uvula swelling. Eyes: Conjunctiva/sclera: Conjunctivae normal. Pupils: Pupils are equal, round, and reactive to light. Cardiovascular: Rate and Rhythm: Normal rate and regular rhythm. Heart sounds: Normal heart sounds. Pulmonary: Effort: Pulmonary effort is normal. No tachypnea, accessory muscle usage or respiratory distress. Breath sounds: Normal breath sounds. No stridor. No wheezing, rhonchi or rales. Abdominal: General: There is no distension. Palpations: Abdomen is soft. Tenderness: There is no abdominal tenderness. There is no guarding or rebound. Musculoskeletal: Cervical back: Normal range of motion and neck supple. No edema, erythema, rigidity or tenderness. No pain with movement. Normal range of motion. Lymphadenopathy: Cervical: No cervical adenopathy. Skin: General: Skin is warm and dry. Neurological: Mental Status: She is alert and oriented to person, place, and time. ASSESSMENT/PLAN: 1. Sinobronchitis - ICD9: 473.9, 490, ICD10: J32.9, J40 Diagnosis sinobronchitis. Placed on doxycycline. Follow-up with PCP 2 to 3 days for reevaluation. Patient was educated on supportive therapies. Patient was instructed to immediately proceed to emergency room for any new, worsening, or symptoms lasting longer than anticipated. The patient's clinical presentation is otherwise unremarkable at this time. Based on exam and clinical finding, the patient is stable for discharge. Plan of care was discussed with patient. Patient verbalizes understanding and agrees to plan of care. This note was generated using [employer] software. It may contain errors in wording, punctuation, or spelling. Bello Albert APRN.INSTRUCTOR TRAINER CANINE SERVICE documented in this encounter [facility] 08-10-2022 Miscellaneous Notes 3rd Attempt: Called and left voicemail for pt to call and schedule her annual women's health visit 2 nd attempt/ left message to call back.Please arrange annual with [facility]. My chart message also sent. 1 st attempt/ left message to call back.Please arrange annual with [facility]. My chart message also sent. documented in this encounter [facility] 01-22-2022 History of Presen t illness Narrative Subjective HPI Nontoxic-appearing female presents urgent care chief complaint right eye redness and irritation. Duration of symptoms upon arising. Associated symptoms right eye pain redness and drainage. Patient states woke up this morning with increased eye pain. States she does wear contacts. Did sleep in contacts last night. Denies any eye trauma or foreign body sensation. No visual changes flashes light or floaters. Patient states vision does seem a bit blurry but when she blinks and clears drainage way does become clear. Most predominant symptom today is photosensitivity. Denies any fever body aches chills nausea vomiting abdominal pain or change in bowel or bladder habits. Past medical history prescription medication use allergies reviewed. .Patient presents with: Eye Problem: right eye redness, light sensitive and pain x this am PAST MEDICAL HISTORY Diagnosis Date Anxiety Depression DIFF CONNECT TIS DIS NOS 07/28/2003 Dysplasia of cervix, low grade (LEATHA 1) 04/23/2012 Lupus (HCC) ?diagnosis (not certain met criteria) PMH - PAST MEDICAL HISTORY OF 05/04 menarche PMH - PAST MEDICAL HISTORY OF 12/16/96 color vision normal varicella varicella at age 1 years PAST SURGICAL HISTORY Procedure Laterality Date MIRENA IUD 05/06/2021 Insertion ALLERGIES Cats, Flagyl [Metronidazole Hcl], Meloxicam, and Seasonal [Other] MEDICATIONS levonorgestrel (MIRENA) 20 mcg/24 hours (6 yrs) 52 mg IUD 1 Each by INTRAUTERINE route as directed. escitalopram oxalate (LEXAPRO) 20 mg tablet valACYclovir (VALTREX) 500 mg tablet Take 1 tablet by mouth once daily. During outbreaks may take 1 tablet twice a day Calcipotriene 0.005 % soln Apply daily for 2 weeks then apply on weekdays mometasone (ELOCON) 0.1 % cream Apply selectively to affected areas of rash or dry scaling and/or itching Seborrheic Dermatitis or Psoriasis of scalp twice per day (bid) until clear and then can stop or taper off as able. AVOID face, eyes, and eyelids, and deep fold areas. Mometasone (ELOCON) 0.1 % lotion Apply selectively to affected areas of rash or dry scaling and/or itching Seborrheic Dermatitis or Psoriasis of scalp twice per day (bid) until clear and then can stop or taper off as able. AVOID face, eyes, and eyelids, and deep fold areas. Clobetasol Propionate (CLOBEX) 0.05 % sham Lather up entire scalp surface that has been itching and scaling with a 15 minute soak-inas tolerated and then thoroughly rinse off completely, on alternate days (qoday) for a 2 to 4 weekperiod (or less if alot better) and then can slowly taper as able to once per week or less often as able. naproxen (NAPROSYN) 500 mg tablet Take 1 tablet by mouth twice daily as needed (for pain/inflammation). Take with food. ketoconazole (NIZORAL) 2 % cream Apply 1 application to affected area once daily. Use for 1 week after rash resolves meclizine (ANTIVERT) 25 mg tab Take 1 tablet by mouth every 6 hours as needed (dizziness). albuterol HFA (PROVENTIL HFA, VENTOLIN HFA) 90 mcg/actuation inhaler Inhale 2 Puffs as instructed every 4 hours as needed. dextroamphetamine/amphetamine (ADDERALL ORAL) Take 25 mg by mouth once daily. fexofenadine (VI ALLERGY) 180 mg tablet Take 180 mg by mouth once daily. ketotifen fumarate (ZADITOR) 0.025 % (0.035 %) ophthalmic solution One drop to each eye 2 to 3 times a day as needed. azelastine (ASTELIN,ASTEPRO) 0.1% nasal spray Use 2 Sprays in each nostril twice daily as needed. fluticasone (FLONASE) 50 mcg/actuation nasal spray Use 2 Sprays in each nostril once daily. Lbzafbtevqwcb-Uanfkdjwrabzt-ZH (TYLENOL COLD HEAD CONGEST SEVR) 5-325-200 mg tab Take 1 Dose by mouth as directed. clonazePAM (KLONOPIN) 0.5 mg tablet Take 1 tablet by mouth at bedtime as needed. May take half to whole pill as needed for panic attacks montelukast (SINGULAIR) 10 mg tablet Take 1 tablet by mouth daily at bedtime. FAMILY HISTORY Problem Relation Age of Onset Hypertension Mother Hypertension Father Diabetes Maternal Grandmother Hypertension Maternal Grandmother Emphysema Maternal Grandfather - congestive heart failure Coronary Artery Disease Paternal Grandfather Heart Paternal Grandfather [place] Social History Tobacco Use Smoking status: Former Smoker Types: Cigarettes Quit date: 06/26/2016 Years since quittin.5 Smokeless tobacco: Never Used Tobacco comment: mother smokes Vaping Use Vaping Use: Never used Substance Use Topics Alcohol use: Yes Comment: Occasionally Drug use: No BP 102/66 Pulse 90 Temp 36.8 C (98.2 F) Resp 16 Wt 64.4 kg (142 lb) LMP 11/15/2014 SpO2 98% BMI 26.13 kg/m Review of Systems Constitutional: Negative for chills, fever and malaise/fatigue. HENT: Negative for congestion, ear discharge, ear pain, sinus pain and sore throat. Eyes: Positive for photophobia, pain, discharge and redness. Negative for blurred vision and double vision. Respiratory: Negative for cough, hemoptysis, sputum production, shortness of breath, wheezing and stridor. Cardiovascular: Negative for chest pain. Gastrointestinal: Negative for abdominal pain, diarrhea, nausea and vomiting. Musculoskeletal: Negative for myalgias. Skin: Negative for itching and rash. Neurological: Negative for dizziness and headaches. Objective Physical Exam Constitutional: General: She is not in acute distress. Appearance: She is not diaphoretic. HENT: Head: Normocephalic. Mouth/Throat: Mouth: Mucous membranes are moist. Pharynx: Oropharynx is clear. No oropharyngeal exudate or posterior oropharyngeal erythema. Eyes: General: Lids are normal. Vision grossly intact. Right eye: Discharge present. No foreign body or hordeolum. Conjunctiva/sclera: Right eye: Right conjunctiva is injected. No chemosis, exudate or hemorrhage. Pupils: Pupils are equal, round, and reactive to light. Comments: Visual acuity intact via bedside examination. No foreign bodies or abrasion ulcer noted on fluorescein stain. Cardiovascular: Rate and Rhythm: Normal rate and regular rhythm. Heart sounds: Normal heart sounds. Pulmonary: Effort: Pulmonary effort is normal. No tachypnea, accessory muscle usage or respiratory distress. Breath sounds: Normal breath sounds. No stridor. Abdominal: Palpations: Abdomen is soft. Tenderness: There is no abdominal tenderness. Musculoskeletal: Cervical back: Normal range of motion and neck supple. No rigidity or tenderness. Lymphadenopathy: Cervical: No cervical adenopathy. Skin: General: Skin is warm and dry. Neurological: Mental Status: She is alert and oriented to person, place, and time. ASSESSMENT/PLAN: 1. Red eye associated with contact lens - ICD9: 379.93, V41.0, ICD10: H57.89, Z97.3 Patient denies flashes of light floaters. No eye trauma. Visual acuity is unchanged. 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 Cipro eyedrops prescribed. Red flags for prompt reevaluation in ED tonight discussed. Will follow up with ophthalmology tomorrow for reevaluation. Patient was educated on supportive therapies. Patient will follow up with primary care provider as needed. Patient was instructed to immediately proceed to emergency room for any new, worsening, or symptoms lasting longer than anticipated. The patient's clinical presentation is otherwise unremarkable at this time. Based on exam and clinical finding, the patient is stable for discharge. Plan of care was discussed with patient. Patient verbalizes understanding and agrees to plan of care. This note was generated using [employer] software. It may contain errors in wording, punctuation, or spelling. Bello Albert APRN.BLAKE documented in this encounter [facility] Evaluation note Diagnosis Red eye associated with contact lens- Primary [facility] Diagnosis Sinobronchitis- Primary Unspecified sinusitis (chronic) [facility] Diagnosis Bacterial conjunctivitis- Primary Other conjunctivitis [facility] Diagnosis Other fatigue- Primary Special screening examination for viral disease Special screening examination for unspecified viral disease documented in this encounter [facility] Summary Purpose Family History No Family History Records Found Advance Directives No Advanced Directives Records Found Additional Source Comments Source Comments (unrecognize d section and content) In the event this informatio n is protected by the Federal Confidentiality of Alcohol and Drug Abuse Patient Records regulations: The Federal rules restrict any use of the information to criminally investigate or prosecute any alcohol or drug abuse patient.[facility] event this information is protected by the Federal Confidentiality of Alcohol and Drug Abuse Patient Records regulations: The Federal rules restrict any use of the information to criminally investigate or prosecute any alcohol or drug abuse patient.[facility] the event this information is protected by the Federal Confidentiality of Alcohol and Drug Abuse Patient Records regulations: The Federal rules restrict any use of the information to criminally investigate or prosecute any alcohol or drug abuse patient.[facility] the event this information is protected by the Federal Confidentiality of Alcohol and Drug Abuse Patient Records regulations: The Federal rules restrict any use of the information to criminally investigate or prosecute any alcohol or drug abuse patient.[facility] the event this information is protected by the Federal Confidentiality of Alcohol and Drug Abuse Patient Records regulations: The Federal rules restrict any use of the information to criminally investigate or prosecute any alcohol or drug abuse patient.[facility] the event this information is protected by the Federal Confidentiality of Alcohol and Drug Abuse Patient Records regulations: The Federal rules restrict any use of the information to criminally investigate or prosecute any alcohol or drug abuse patient.[facility] Reason for Visit (unrecogniz ed section and content) Reason Comments Eye Problem right eye redness, l ight sensitive and pain x this am Reason Comments Appointment Reason Comments Sinus Problem sinus pressure, drai nage, cough x 3 weeks Reason Comments Eye Problem left eye redness and drainage x this am Reason Comments Fatigue Care Teams (unrecognized sec tion and content) Sightseeing Guide Relationship Specialty Start Date End Date Deborah Brown MD [address] [facility] [place] [address] PCP - General Internal Medicine 01/15/13 Sightseeing Guide Relationship Specialty Start Date End Date Deborah Brown MD [address] [place] [address] PCP - General Internal Medicine 01/15/13 Sightseeing Guide Relationship Specialty Start Date End Date Deborah Brown MD [address] [place] [address] PCP - General Internal Medicine 01/15/13 Sightseeing Guide Relationship Specialty Start Date End Date Deborah Brown MD [address] [place] [address] PCP - General Internal Medicine 01/15/13 Sightseeing Guide Relationship Specialty Start Date End Date Deborah Brown MD [address] [place] [address] PCP - General Internal Medicine 01/15/13 Clarissa Gipson, CAN FILLING ROOM SWEEPER.DIGITAL LIBRARIAN [address] [place] [address] Video System Repairer Internal Medicine 08/11/24 Viridiana Meredith CAN FILLING ROOM SWEEPER.INSTRUCTOR TRAINER CANINE SERVICE [address] [place] [address] Video System Repairer Internal Medicine 08/11/24 Sightseeing Guide Relationship Specialty Start Date End Date Deborah Brown MD [address] [facility] [place] [address] PCP - General Internal Medicine 01/15/13 Clarissa Gipson, AUBREY.DIGITAL LIBRARIAN [address] [place], [place] [address] [facility] Internal Medicine 08/11/24 Viridiana Meredith APRN.INSTRUCTOR TRAINER CANINE SERVICE [address] [place] [address] [facility] Internal Medicine 08/11/24 INFORMATION SOURCE (unrecogn ized section and content) DATE CREATED AUTHOR 09/14/2024 [facility] FOR RECORDS PERTAINING TO PATIENTS WHO ARE OR HAVE BEEN ENROLLED IN A CHEMICAL DEPENDENCY/SUBSTANCEABUSE PROGRAM, SOME INFORMATION MAY BE OMITTED. This clinical summary was aggregated from multiple sources. Caution should be exercised in using it in the provision of clinical care. This summary normalizes information from multiple sources, and as a consequence, information in this document may materially change the coding, format and clinical context of patient data. In addition, data may be omitted in some cases. CLINICAL DECISIONS SHOULD BE BASED ON THE PRIMARY CLINICAL RECORDS. [employer] [facility]. provides no warranty or guarantee of the accuracy or completeness of information in this document.
[2025-04-01] MEDS: Lorazepam 2 MG/ML WCH Syringe 1 MG IV (02:12)
[2025-04-01 03:04] VITALS: BP 97/68; PULSE 123; RESP 18; TEMP 36.6; O2SAT 98
== END 2025-04-01 03:05 | disposition home or self-care (01) ==
LOC: ED 04-01 01:07
PROVIDERS: Emergency Provider Emergency Medicine; PCP Internal Medicine; Visit Provider Emergency Medicine
DX: F41.0 Panic disorder [episodic paroxysmal anxiety] (principal); Z79.899 Other long term (current) drug therapy; F17.290 Nicotine dependence, other tobacco product, uncomplicated
CPT/HCPCS: 80048; 82077; 84439; 84443; 84481; 84703; 85025; 96372; 96374; 96375; 99285; A4216